=== PATIENT | male | born 1990 | race Caucasian/White ===

== ENCOUNTER 2022-12-01 09:22 | Inpatient (IN) | payer BC ==
[2022-12-01] MEDS ORDERED: SODIUM CHLORIDE 0.9% 500 ML 500 ML IV STA (09:41)
--- NOTE | 2022-12-01 09:45 | ED ---
General Adult HPI - General Chief complaint: Recheck/Abnormal Lab/Rx Stated complaint: hypertension, SOB Time Seen by Provider: 12/01/22 09:30 Source: patient, RN notes reviewed, old records reviewed Mode of arrival: ambulatory Limitations: no limitations - History of Present Illness Initial comments: This is a 32-year-old male with past medical history significant for hypertension and he isn't compliant with his medications. Patient states for about a week he's been short of breath and particularly with exertion. Patient states that week he had a little bit of a cold had a cough but that seems to resolve. Patient denies any chest pain patient denies any palpitations. Patient denies any fever chills. Patient denies any lightheadedness or di zziness. Patient states his only complaint is he feels so he is short of breath. Patient denies any abdominal pain patient denies nausea vomiting diarrhea. Patient denies headache patient denies numbness weakness. Patient denies any swelling to her legs or calf tenderness. Patient denies any history of similar. - Related Data Allergies Allergy/AdvReac Type Severity Reaction Status Date / Time No Known Allergies Allergy Verified 12/01/22 09:28 Review of Systems ROS Statement: Those systems with pertinent positive or pertinent negative responses have been documented in the HPI. ROS Other: All systems not noted in ROS Statement are negative. Past Medical History Past Medical History: Hypertension History of Any Multi-Drug Resistant Organisms: None Reported Past Surgical History: No Surgical Hx Reported Past Psychological History: No Psychological Hx Reported Smoking Status: Current every day smoker Past Alcohol Use History: Occasional Past Drug Use History: Marijuana General Exam - General Exam Comments Initial Comments: GENERAL: Patient is well-developed and well-nourished. Patient is nontoxic and well-h ydrated and is in mild distress. ENT: Neck is soft and supple. No significant lymphadenopathy is noted. Oropharynx is clear. Moist mucous membranes. Neck has full range of motion without eliciting any pain. EYES: The sclera were anicteric and conjunctiva were pink and moist. Extraocular mov ements were intact and pupils were equal round and reactive to light. Eyelids were unremarkable. PULMONARY: Unlabored respirations. Good breath sounds bilaterally. No audible rales rhonchi or wheezing was noted. CARDIOVASCULAR: Patient is tachycardic at 130 beats a minute ABDOMEN: Soft and nontender with normal bowel sounds. SKIN: Skin is clear with no lesions or rashes and otherwise unremarkable. NEUROLOGIC: Patient is alert and oriented x3. Cranial nerves II through XII are grossly intact. Motor and sensory are also intact. Normal speech, volume and content. Symmetrical smile. MUSCULOSKELETAL: Normal extremities with adequate strength and full range of motion. No lower ex tremity swelling or edema. No calf tenderness. LYMPHATICS: No significant lymphadenopathy is noted PSYCHIATRIC: Normal psychiatric evaluation. Limitations: no limitations Course Vital Signs 12/01/22 12/01/22 12/01/22 09:23 10:00 10:15 Temperature 98.4 F Pulse Rate 70 110 H 113 H Respiratory 18 16 17 Rate Blood Pressure 205/160 218/141 218/141 O2 Sat by Pulse 98 98 99 Oximetry 12/01/22 12/01/22 12/01/22 10:18 10:30 10:45 Temperature Pulse Rate 115 H 115 H 112 H Respiratory 18 15 15 Rate Blood Pressure 214/163 214/163 195/150 O2 Sat by Pulse 99 100 97 Oximetry 12/01/22 12/01/22 12/01/22 11:00 11:15 11:30 Temperature Pulse Rate 112 H 86 88 Respiratory 15 15 18 Rate Blood Pressure 194/143 182/113 131/68 O2 Sat by Pulse 97 95 94 L Oximetry Medical Decision Making - Medical Decision Making EKG was interpreted by myself here EKG shows sinus tachycardia [address] interval 140 QRS is under 20 QT interval 340 QTC is 46 per patient's EKG shows no ST segment elevation or depression patient has some T-wave inversions in 1 and aVL Patient was given 20 hydralazine and then started to become diaphoretic for repeat EKG was done EKG was interpreted by myself. EKG showed normal sinus rhythm at [address] interval 260 QRS 120 QTC is 444 QTC is 521 per patient's EKG shows T-wave in versions in leads V4 through V6 as well as 1 and aVL. Was pt. sent in by a medical professional or institution? @ -Urgent care sent the patient to the emergency department Did you speak to anyone other than the patient for history? @ -No Did you review nursing and triage notes? @ -Agree with nursing notes Were old charts reviewed? @ -I reviewed the urgent care notes Differential Diagnosis? @ -Differential Dyspnea: Coronary syndrome, arrhythmia, tamponade, asthma, COPD, pulmonary embolism, pneumonia, pneumothorax, pulmonary effusion, anaphylaxis, diabetic ketoacidosis, flailed chest, pulmonary contusion, diaphragmatic rupture, anemia, neuromuscular, this is not meant to be an all-inclusive list. EKG interpreted by me (3pts min.)? @ -As above X-rays interpreted by me (1pt min.)? @ -I interpreted chest x-ray that showed cardiomegaly or pleural effusions and some pulmonary edema CT interpreted by me (1pt min.)? @ -None U/S interpreted by me (1pt. min.)? @ -None What testing was considered but not performed? (CT, X-rays, U/S, labs)? Why? @ -Echo was considered but it'll be done as an inpatient after I spoke with cardiology. What meds were considered but not given? Why? @ -Lasix was considered however I thought this was more blood pressure issue so I held the Lasix for now Did you discuss the management of the patient with other professionals? @ -I spoke with Dr. Contreras he agreed to be on consult and see the patient in the ED. I also spoke with Dr. reina he agreed to admit the patient I wrote admitting orders. Did you reconcile home meds? @ -None Was smoking cessation discussed for >3mins.? @ -None Was critical care preformed (if so, how long)? @ -Yes. 35 minutes. Were there social determinants of health that impacted care today? How? (Homelessness, low income, unemployed, alcoholism, drug addiction, transportation, low edu. Level, literacy, decrease access to med. care, assisted, rehab)? @ -None Was there de-escalation of care discussed even if they declined? (Discuss DNR or withdrawal of care, Hospice)? @ -None What co-morbidities impacted this encounter? (DM, HTN, Smoking, COPD, CAD, Cancer, CVA, Hep., AIDS, mental health diagnosis, sleep apnea, morbid obesity)? @ -Hypertension is contributing to his cardiomegaly as well as is pulmonary edema and kidney dysfunction Was patient admitted / discharged? @ -Patient will be admitted for pulmonary edema acute renal failure elevated troponin and hypertensive emergency Undiagnosed new problem with uncertain prognosis? @ -No Drug Therapy requiring intensive monitoring for toxicity (Heparin, Nitro, Insulin, Cardizem)? @ -No Were any procedures done? @ -No Diagnosis/symptom? @ -Hypertensive emergency Acute, or Chronic, or Acute on Chronic? @ -Acute on chronic Uncomplicated (without systemic symptoms) or Complicated (systemic symptoms)? @ -Complicated Side effects of treatment? @ -None Exacerbation, Progression, or Severe Exacerbation] @ -Severe exacerbation Poses a threat to life or bodily function? @ -Yes his hypertension is causing his renal failure his cardiomegaly and is pulmonary edema Diagnosis/symptom? @ -Pulmonary edema Acute, or Chronic, or Acute on Chronic? @ -Acute Uncomplicated (without systemic symptoms) or Complicated (systemic symptoms)? @ -Complicated Side effects of treatment? @ -None Exacerbation, Progression, or Severe Exacerbation] @ -[no] Poses a threat to life or bodily function? @ -Yes. Pulmonary edema continued hypoxia which can lead to [place] dysfunction Diagnosis/symptom? @ -Acute renal failure Acute, or Chronic, or Acute on Chronic? @ -Acute Uncomplicated (without systemic symptoms) or Complicated (systemic symptoms)? @ -Uncomplicated Side effects of treatment? @ -None Exacerbation, Progression, or Severe Exacerbation] @ -None Poses a threat to life or bodily function? @ -No - Lab Data Result diagrams: 12/01/22 10:00 12/01/22 10:00 Lab Results 12/01/22 12/01/22 12/01/22 Range/Units 10:00 10:00 10:00 WBC 6.2 (3.8-10.6) k/uL RBC 5.55 (4.30-5.90) m/uL Hgb 16.7 (13.0-17.5) gm/dL Hct 46.9 (39.0-53.0) % MCV 84.4 (80.0-100.0) fL MCH 30.0 (25.0-35.0) pg MCHC 35.5 (31.0-37.0) g/dL RDW 13.4 (11.5-15.5) % Plt Count 240 (150-450) k/uL MPV 8.2 Neutrophils % 72 % Lymphocytes % 16 % Monocytes % 5 % Eosinophils % 3 % Basophils % 1 % Neutrophils # 4.5 (1.3-7.7) k/uL Lymphocytes # 1.0 (1.0-4.8) k/uL Monocytes # 0.3 (0-1.0) k/uL Eosinophils # 0.2 (0-0.7) k/uL Basophils # 0.1 (0-0.2) k/uL PT 11.7 (9.0-12.0) sec INR 1.1 (<1.2) APTT 24.8 (22.0-30.0) sec D-Dimer 0.54 (<0.60) mg/L FEU Sodium 136 L (137-145) mmol/L Potassium 3.8 (3.5-5.1) mmol/L Chloride 103 (98-107) mmol/L Carbon Dioxide 24 (22-30) mmol/L Anion Gap 9 mmol/L BUN 14 (9-20) mg/dL Creatinine 1.62 H (0.66-1.25) mg/dL Est GFR (CKD-EPI)AfAm 64 (>60 ml/min/1.73 sqM) Est GFR (CKD-EPI)NonAf 55 (>60 ml/min/1.73 sqM) Glucose 114 H (74-99) mg/dL Plasma Lactic Acid Mike (0.7-2.0) mmol/L Calcium 9.4 (8.4-10.2) mg/dL Total Bilirubin 1.4 H (0.2-1.3) mg/dL AST 35 (17-59) U/L ALT 39 (4-49) U/L Alkaline Phosphatase 99 (38-126) U/L Troponin I (0.000-0.034) ng/mL NT-Pro-B Natriuret Pep pg/mL Total Protein 7.0 (6.3-8.2) g/dL Albumin 4.3 (3.5-5.0) g/dL 12/01/22 12/01/22 12/01/22 Range/Units 10:00 10:00 10:00 WBC (3.8-10.6) k/uL RBC (4.30-5.90) m/uL Hgb (13.0-17.5) gm/dL Hct (39.0-53.0) % MCV (80.0-100.0) fL MCH (25.0-35.0) pg MCHC (31.0-37.0) g/dL RDW (11.5-15.5) % Plt Count (150-450) k/uL MPV Neutrophils % % Lymphocytes % % Monocytes % % Eosinophils % % Basophils % % Neutrophils # (1.3-7.7) k/uL Lymphocytes # (1.0-4.8) k/uL Monocytes # (0-1.0) k/uL Eosinophils # (0-0.7) k/uL Basophils # (0-0.2) k/uL PT (9.0-12.0) sec INR (<1.2) APTT (22.0-30.0) sec D-Dimer (<0.60) mg/L FEU Sodium (137-145) mmol/L Potassium (3.5-5.1) mmol/L Chloride (98-107) mmol/L Carbon Dioxide (22-30) mmol/L Anion Gap mmol/L BUN (9-20) mg/dL Creatinine (0.66-1.25) mg/dL Est GFR (CKD-EPI)AfAm (>60 ml/min/1.73 sqM) Est GFR (CKD-EPI)NonAf (>60 ml/min/1.73 sqM) Glucose (74-99) mg/dL Plasma Lactic Acid Mike 1.5 (0.7-2.0) mmol/L Calcium (8.4-10.2) mg/dL Total Bilirubin (0.2-1.3) mg/dL AST (17-59) U/L ALT (4-49) U/L Alkaline Phosphatase (38-126) U/L Troponin I 0.046 H* (0.000-0.034) ng/mL NT-Pro-B Natriuret Pep 8950 pg/mL Total Protein (6.3-8.2) g/dL Albumin (3.5-5.0) g/dL Critical Care Time Critical Care Time: Yes Total Critical Care Time: 35 Disposition Clinical Impression: Hypertensive emergency, Acute renal failure, Pulmonary edema, acute, Elevated troponin Disposition: ADMITTED IP TO THIS [facility] Referrals: None,Stated [REFERRING] - 1-2 days Time of Disposition: 12:08
[2022-12-01 10:23] LABS: Basophils # (A) 0.1 k/uL (0-0.2); Basophils % (A) 1 %; Eosinophils # (A) 0.2 k/uL (0-0.7); Eosinophils % (A) 3 %; HCT 46.9 % (39.0-53.0); HGB 16.7 gm/dL (13.0-17.5); Lymphocytes % (A) 16 %; MCHC 35.5 g/dL (31.0-37.0); MCV 84.4 fL (80.0-100.0); Mean Platelet Volume 8.2; Monocytes # (A) 0.3 k/uL (0-1.0); Monocytes % (A) 5 %; Neutrophils # (A) 4.5 k/uL (1.3-7.7); Neutrophils % (A) 72 %; Platelet Count 240 k/uL (150-450); RBC 5.55 m/uL (4.30-5.90); RDW 13.4 % (11.5-15.5); WBC 6.2 k/uL (3.8-10.6)
[2022-12-01] MEDS ORDERED: hydrALAZINE HCL 20 MG/ML 1 ML VIAL IVP STA (10:27)
[2022-12-01] MEDS ORDERED: LABETALOL 5 MG/ML VIAL MDV IVP STA (10:27)
[2022-12-01 10:30] LABS: Albumin 4.3 g/dL (3.5-5.0); Calcium 9.4 mg/dL (8.4-10.2); Total Bilirubin 1.4 mg/dL (0.2-1.3)
[2022-12-01 10:35] LABS: INR 1.1 (<1.2); Partial Thromboplastin Time 24.8 sec (22.0-30.0); Prothrombin Time 11.7 sec (9.0-12.0)
[2022-12-01 10:36] LABS: Potassium 3.8 mmol/L (3.5-5.1)
--- NOTE | 2022-12-01 10:45 | XR ---
EXAMINATION TYPE: XR chest 2V DATE OF EXAM: 12/01/2022 10:39 AM COMPARISON: Chest radiographs from 12/01/2022 TECHNIQUE: XR chest 2V Frontal and lateral views of the chest. CLINICAL INDICATION:Male, 32 years old with history of difficulty breathing; FINDINGS: Lungs/Pleura: Scattered subtle reticular and hazy opacities. No evidence of pneumothorax, focal conso lidation or pleural effusion. Pulmonary vascularity: Unremarkable. Heart/mediastinum: Cardiomediastinal silhouette is unremarkable. Musculoskeletal: No acute osseous pathology. IMPRESSION: Subtle scattered opacities which may represent an atypical pneumonia.
[2022-12-01] MEDS ORDERED: HEPARIN SODIUM 1,000 UN/ML (10ML VL) IV ONE (11:50)
[2022-12-01] MEDS: HEPARIN SOD,PORK IN 0.45% NACL 25,000 UNIT in 0.45% NACL 1 250ML.BAG IV SCH (12:00)
[2022-12-01] MEDS ORDERED: carvediloL 3.125 MG TAB PO STA (12:11)
--- NOTE | 2022-12-01 12:16 | P.CRDCN ---
History of Present Illness Consult date: 12/01/22 Chief complaint: Shortness of breath History of present illness: The patient is a 32-year-old gentleman with a past medical history significant f or hypertension who stopped taking his blood pressure medication with lisinopril about 2 years ago presented to the hospital complaining of shortness of breath. He has not been feeding well for the last week or so. He was experiencing symptoms of shortness of breath mainly with exertion and also he has been experiencing orthopnea and PND. He presented initially into an urgent care where he was checked and was found to have elevated blood pressure which seems to be consistent was hypertension crisis/hypertension emergency with a systolic pressure above 180 mmHg. For that reason he was referred to go to the emergency department. Here his pressure continues to be elevated. He was given hy dralazine with improvement in the blood pressure. He has no symptoms of chest pain or chest discomfort. No dizziness or lightheadedness and no feeling of heart racing or fluttering or presyncope or syncope. He underwent a workup including a chest x-ray showed no acute abnormalities with possible left small pleural effusion and also he underwent an EKG which showed initially sinus rhythm was no ST or T-wave abnormalities but possible LVH but subsequently after his pressure dropped down with hydralazine the repeated EKG showed what it seems to be T-wave inversion in the anterolateral leads definitely concerning for ischemia and could be also related to left ventricular hypertrophy. The first set of troponin came in to be abnormal. The NT proBNP came in around 8000. His creatinine also is a slightly abnormal with a GFR of 55. No history of coronary artery disease or congestive heart failure or cardiac arrhythmia but he does have history of hypertension and he has been noncompliant with medications. Currently he is feeling better into of shortness of breath and continues to have any chest pain or chest discomfort. Past Medical History Past Medical History: Hypertension History of Any Multi-Drug Resistant Organisms: None Reported Past Surgical History: No Surgical Hx Reported Past Psychological History: No Psychological Hx Reported Smoking Status: Current every day smoker Past Alcohol Use History: Occasional Past Drug Use History: Marijuana Medications and Allergies Allergies Allergy/AdvReac Type Severity Reaction Status Date / Time No Known Allergies Allergy Verified 12/01/22 09:28 Physical Exam Vitals: Vital Signs Temp Pulse Resp BP Pulse Ox 12/01/22 11:30 88 18 131/68 94 L 12/01/22 11:15 86 15 182/113 95 12/01/22 11:00 112 H 15 194/143 97 12/01/22 10:45 112 H 15 195/150 97 12/01/22 10:30 115 H 15 214/163 100 12/01/22 10:18 115 H 18 214/163 99 12/01/22 10:15 113 H 17 218/141 99 12/01/22 10:00 110 H 16 218/141 98 12/01/22 09:23 98.4 F 70 18 205/160 98 Intake and Output 11/30/22 12/01/22 12/01/22 22:59 06:59 14:59 Other: Weight 90.537 kg - Constitutional General appearance: no acute distress - Respiratory Respiratory: bilateral: CTA - Cardiovascular Rhythm: regular Results 12/01/22 10:00 12/01/22 10:00 Cardiac Enzymes 12/01/22 12/01/22 Range/Units 10:00 10:00 AST 35 (17-59) U/L Troponin I 0.046 H* (0.000-0.034) ng/mL Coagulation 12/01/22 Range/Units 10:00 PT 11.7 (9.0-12.0) sec APTT 24.8 (22.0-30.0) sec CBC 12/01/22 Range/Units 10:00 WBC 6.2 (3.8-10.6) k/uL RBC 5.55 (4.30-5.90) m/uL Hgb 16.7 (13.0-17.5) gm/dL Hct 46.9 (39.0-53.0) % Plt Count 240 (150-450) k/uL Comprehensive Metabolic Panel 12/01/22 Range/Units 10:00 Sodium 136 L (137-145) mmol/L Potassium 3.8 (3.5-5.1) mmol/L Chloride 103 (98-107) mmol/L Carbon Dioxide 24 (22-30) mmol/L BUN 14 (9-20) mg/dL Creatinine 1.62 H (0.66-1.25) mg/dL Glucose 114 H (74-99) mg/dL Calcium 9.4 (8.4-10.2) mg/dL AST 35 (17-59) U/L ALT 39 (4-49) U/L Alkaline Phosphatase 99 (38-126) U/L Total Protein 7.0 (6.3-8.2) g/dL Albumin 4.3 (3.5-5.0) g/dL Current Medications Generic Name Dose Route Start Last Admin Trade Name Freq PRN Reason Stop Dose Admin Carvedilol 3.125 mg 12/01/22 12:11 Carvedilol 3.125 Mg Tab PO 12/01/22 12:12 ONCE STA Heparin Sodium/Sodium Chloride 250 mls @ 10.004 mls/hr 12/01/22 12:00 12/01/22 12:00 25,000 unit/ Sodium Chloride IV 11.05 units/kg/hr .Q24H MICHEAL 10.004 mls/hr Administration Protocol 11.05 UNITS/KG/HR Intake and Output 11/30/22 12/01/22 12/01/22 22:59 06:59 14:59 Other: Weight 90.537 kg Patient Weight 12/02/22 06:59 Weight 90.537 kg 12/01/22 10:00 12/01/22 10:00 Assessment and Plan Assessment: Assessment Hypertension crisis with hypertension emergency Shortness of breath related to hypertension emergency Evidence of myocardial injury with EKG changes could be representing severe CAD Mild renal failure Noncompliance Plan Giving the hypertension and tachycardia, I'm going to start the patient on carvedilol Consider adding diuretics if the pressure remains elevated. Consider adding hydrochlorothiazide Continue monitor the kidney function and electrolytes Continue just the medications to get the pressure under control Follow-up with the serial cardiac enzymes Obtain an echocardiogram was Doppler Follow-up with the patient
[2022-12-01] MEDS ORDERED: NITROGLYCERIN-D5W PMX 50 MG in DEXTROSE/WATER 1 250ML.BAG IV SCH (17:45)
[2022-12-01] MEDS ORDERED: amLODIPine 5 MG TAB PO SCH (18:30)
[2022-12-01] MEDS: hydroCHLOROthiazide 25 MG TAB PO SCH (18:33)
[2022-12-01] MEDS: hydrALAZINE HCL 20 MG/ML 1 ML VIAL IVP PRN ×2 (18:33→22:14)
[2022-12-01] MEDS ORDERED: HEPARIN SODIUM 1,000 UN/ML (10ML VL) IV PRN (18:46)
--- NOTE | 2022-12-01 21:42 | HP ---
HISTORY AND PHYSICAL CHIEF COMPLAINT: Shortness of breath and hypertension. HISTORY OF PRESENT ILLNESS: This 32-year-old gentleman with a past medical history of hypertension, is actually noncompliant, the patient is not taking medications during the COVID times according to him. The patient is complaining of shortness of breath and the patient came to [facility]. The patient had a history of CHF and hypertensive urgency. The troponin is also mildly elevated. The patient was given hydralazine, but because of increase in blood pressure, the patient was started on nitro drip and is being transferred to ICU at this time. There is no history of any fever, rigors, or chills. PAST MEDICAL HISTORY: Reviewed and include hypertension. Rest of the history and rest of the chart is reviewed. HOME MEDICATIONS: Reviewed and include none. ALLERGIES: None. FAMILY HISTORY: No history of heart disease or strokes in the family. SOCIAL HISTORY: History of smoking and history of THC. REVIEW OF SYSTEMS: A 14-point review of systems is negative except as mentioned earlier. PHYSICAL EXAMINATION: VITAL SIGNS: Pulse is 112, blood pressure 117/72, respirations 15. HEENT: Conjunctivae normal. NECK: n CARDIOVASCULAR: n S3 gallop present. RESPIRATION: Few scattered rhonchi and crackles. ABDOMEN: Soft, nontender. LEGS: No edema. NERVOUS SYSTEM: Nonfocal. SKIN: No ulcer, rash,n JOINTS: No active deforming arthropathy. LABORATORY DATA: CBC within normal limits. Sodium 133. Rest of the labs are noted. ASSESSMENT: 1. Congestive heart failure acute exacerbation. 2. Hypertensive urgency. 3. Troponin 0.062, possible acute rxl-WH-eckctur elevation myocardial infarction. 4. Creatinine 1.62, chronic kidney disease, stage 3. 5. History of nicotine dependence. 6. History of THC. 7. History of noncompliance. RECOMMENDATIONS: In this 32-year-old gentleman, who presented with multiple complex medical issues at this time, I recommend to continue current management and symptomatic treatment. Continue hydralazine p.r.n. Transfer to ICU and nitro drip. Resume the home medications. Coreg and aspirin were initiated. The prognosis is guarded because of multiple complex medical problems. See orders for further details. n Norvasc has been initiated 5 mg, and we will continue to monitor. Prognosis is guarded. See orders for details. DVT prophylaxis. Further recommendations to follow. MMODL / IJN: [id number] / MTDD
[2022-12-02] MEDS: HEPARIN SOD,PORK IN 0.45% NACL 25,000 UNIT in 0.45% NACL 1 250ML.BAG IV SCH (00:42)
[2022-12-02] MEDS: hydrALAZINE HCL 20 MG/ML 1 ML VIAL IVP PRN ×4 (02:19→21:34)
[2022-12-02 07:22] LABS: Basophils # (A) 0.1 k/uL (0-0.2); Basophils % (A) 1 %; Eosinophils # (A) 0.1 k/uL (0-0.7); Eosinophils % (A) 2 %; HCT 45.4 % (39.0-53.0); HGB 15.8 gm/dL (13.0-17.5); Lymphocytes % (A) 11 %; MCH 29.7 pg (25.0-35.0); MCHC 34.9 g/dL (31.0-37.0); MCV 85.1 fL (80.0-100.0); Mean Platelet Volume 8.4; Monocytes # (A) 0.5 k/uL (0-1.0); Monocytes % (A) 6 %; Neutrophils # (A) 6.7 k/uL (1.3-7.7); Neutrophils % (A) 79 %; Platelet Count 207 k/uL (150-450); RBC 5.33 m/uL (4.30-5.90); RDW 13.6 % (11.5-15.5); WBC 8.5 k/uL (3.8-10.6)
[2022-12-02 07:29] LABS: Calcium 9.3 mg/dL (8.4-10.2); Potassium 3.6 mmol/L (3.5-5.1)
--- NOTE | 2022-12-02 08:55 | P.PN ---
Subjective Progress Note Date: 12/02/22 Principal diagnosis: Hypertension emergency The patient is a 32-year-old gentleman with a past medical history significant for hypertension who stopped taking his blood pressure medication with lisinopril about 2 years ago presented to the hospital complaining of shortness of breath. He has not been feeding well for the last week or so. He was experiencing symptoms of shortness of breath mainly with exertion and also he has been experiencing orthopnea and PND. He presented initially into an urgent care where he was checked and was found to have elevated blood pressure which seems to be consistent was hypertension crisis/hypertension emergency with a systolic pressure above 180 mmHg. For that reason he was referred to go to the emergency department. Here his pressure continues to be elevated. He was given hydralazine with improvement in the blood pressure. He has no symptoms of chest pain or chest discomfort. No dizziness or lightheadedness and no feeling of heart racing or fluttering or presyncope or syncope. He underwent a workup including a chest x-ray showed no acute abnormalities with possible left small pleural effusion and also he underwent an EKG which showed initially sinus rhythm was no ST or T-wave abnormalities but possible LVH but subsequently after his pressure dropped down with hydralazine the repeated EKG showed what it seems to be T-wave inversion in the anterolateral leads definitely concerning for ischemia and could be also related to left ventricular hypertrophy. The first set of troponin came in to be abnormal. The NT proBNP came in around 8000. His creatinine also is a slightly abnormal with a GFR of 55. No history of coronary artery disease or congestive heart failure or cardiac arrhythmia but he does have history of hypertension and he has been noncompliant with medications. Currently he is feeling better into of shortness of breath and continues to have any chest pain or chest discomfort. 12/02/2022 The patient was seen and evaluated this morning. He was feeling overall better. The shortness of breath has improved. No symptoms of chest pain or chest discomfort. The pressure continues to be elevated but definitely improved compared to before. Still slightly tachycardic. We'll increase the dose of carvedilol to 6.25 mg by mouth twice a day. Waiting for the echo to be performed. Kidney function has improved. I'm going to proceed with that heart catheterization to rule out severe underlying coronary artery disease Objective - Vital Signs Vital signs: Vital Signs Temp 97.7 F 12/01/22 20:00 Pulse 107 H 12/02/22 08:50 Resp 18 12/02/22 08:50 BP 169/116 12/02/22 08:50 Pulse Ox 98 12/02/22 08:50 FiO2 Intake & Output 12/01/22 12/02/22 12/02/22 18:59 06:59 18:59 Intake Total 66.026 1047.683 Balance 66.026 1047.683 Weight 90.537 kg 90.537 kg Intake: Intake, IV Titration 66.026 77.683 Amount Heparin Sod,Pork in 0.45% 66.026 77.683 NaCl 25,000 unit In 0.45 % NaCl 1 250ml.bag @ 11. 05 UNITS/KG/HR 10.004 mls /hr IV .Q24H [facility] Rx#: [id number] Oral 970 Other: Voiding Method Toilet Urinal # Voids 3 - Constitutional General appearance: Present: no acute distress - Respiratory Respiratory: bilateral: CTA - Cardiovascular Rhythm: regular - Labs CBC & Chem 7: 12/02/22 06:34 12/02/22 06:34 Labs: Abnormal Lab Results - Last 24 Hours (Table) 12/01/22 12/01/22 12/01/22 Range/Units 10:00 10:00 12:38 APTT (22.0-30.0) sec Sodium 136 L (137-145) mmol/L Creatinine 1.62 H (0.66-1.25) mg/dL Glucose 114 H (74-99) mg/dL Total Bilirubin 1.4 H (0.2-1.3) mg/dL Troponin I 0.046 H* 0.047 H* (0.000-0.034) ng/mL 12/01/22 12/02/22 12/02/22 Range/Units 15:42 00:01 06:34 APTT 33.4 H (22.0-30.0) sec Sodium 135 L (137-145) mmol/L Creatinine 1.41 H (0.66-1.25) mg/dL Glucose (74-99) mg/dL Total Bilirubin (0.2-1.3) mg/dL Troponin I 0.062 H* (0.000-0.034) ng/mL 12/02/22 Range/Units 06:34 APTT 59.4 H (22.0-30.0) sec Sodium (137-145) mmol/L Creatinine (0.66-1.25) mg/dL Glucose (74-99) mg/dL Total Bilirubin (0.2-1.3) mg/dL Troponin I (0.000-0.034) ng/mL Assessment and Plan Assessment: Assessment Hypertension crisis with hypertension emergency Shortness of breath related to hypertension emergency Evidence of myocardial injury with EKG changes could be representing severe CAD Mild renal failure Noncompliance Plan Increase the dose of carvedilol Continue the current dose of hydrocortisone Follow-up with echocardiogram Proceed with coronary angiogram Follow-up with the patient and continue just the blood pressure medication
[2022-12-02] MEDS ORDERED: VERAPAMIL 2.5 MG/ML 2 ML AMP ONE (09:22)
[2022-12-02] MEDS: amLODIPine 10 MG TAB PO SCH (09:24)
[2022-12-02] MEDS: hydroCHLOROthiazide 25 MG TAB PO SCH (09:24)
[2022-12-02] MEDS: carvediloL 6.25 MG TAB PO SCH ×2 (09:24→16:48)
[2022-12-02] MEDS ORDERED: IV FLUID CONTINUATION 1,000 ML IV ONE (10:00)
[2022-12-02] MEDS ORDERED: HEPARIN SODIUM 1,000 UN/ML (10ML VL) ONE (10:05)
[2022-12-02] MEDS ORDERED: MIDAZOLAM 2 MG/2 ML VIAL IV ONE (10:09)
[2022-12-02] MEDS ORDERED: METOPROLOL TARTRATE 5 MG/5 ML VIAL IVP ONE ×2 (10:09→10:11)
[2022-12-02] MEDS ORDERED: LIDOCAINE 1% INJ 10MG/ML (5 ML VIAL-PF) SQ ONE (10:09)
[2022-12-02] MEDS ORDERED: VERAPAMIL SYRINGE (5 MG/10 ML) INTRAARTER ONE (10:10)
[2022-12-02] MEDS ORDERED: HEPARIN SODIUM 1,000 UN/ML (10ML VL) IV ONE (10:12)
[2022-12-02] MEDS ORDERED: IOPAMIDOL-370 125ML BTL INJ ONE (10:17)
[2022-12-02] MEDS ORDERED: RX INFO: IV CONTRAST WAS GIVEN 1 EACH MISC MISCELLANE PRN (10:22)
--- NOTE | 2022-12-02 10:24 | P.PCN ---
Date of Procedure: 12/02/22 Operative Findings: CARDIAC CATHETERIZATION PERFORMING PHYSICIAN: Markie Contreras MD, RPVI PROCEDURE PERFORMED: 1. Selective right and left coronary angiogram 2. Left heart catheterization INDICATION: Acute colitis and COMPLICATION: None APPROACH: Right radial artery LEVEL OF SEDATION: Moderate with a sedation length of 10 minutes PROCEDURE DESCRIPTION: After obtaining an informed consent, the patient was brought to cardiac lab instructor. Local anesthesia was performed using lidocaine subcutaneously. The right radial artery was cannulated using Seldinger technique, the guidewire passed easily, following that we advanced a 5-Malian sheath dilator assembly, the wire and dilator were removed and sheath was flushed. Following that, 2 mg of verapamil along with 5000 unit heparin were given. Selective right and left coronary angiogram using a 6-Malian JR4 and JL 3.5 catheters. Following that we did left heart catheterization using 6-Malian pigtail catheter. The procedure was completed there was no complication. SELECTIVE CORONARY ANGIOGRAM: The right coronary artery: Large caliber vessel and a dominant vessel. Its angiographically normal Left main: Angiographically normal. Bifurcates into LCx and LAD The left circumflex: Large caliber vessel nondominant vessel. Its angiographically normal. The left anterior descending artery: Large caliber vessel. Its angiographically normal as well. HEMODYNAMICS: The LVEDP was 24 mmHg was no significant gradient across aortic valve CONCLUSION: 1. Normal coronary angiogram 2. Elevated left-sided filling pressure POSTPROCEDURE MANAGEMENT: Continue the current medical regimen and add IV diuretics and continue adjusting the medication to get the pressure under control
[2022-12-02] MEDS ORDERED: SODIUM CHLORIDE 0.9% 1,000 ML IV SCH (10:30)
--- NOTE | 2022-12-02 15:33 | CA ---
Transthoracic Echo Report Name: Jaden Gregg Age: 32 Gender: M : 1990 Exam Date: 12/02/2022 13:50 Exam Location: [facility] Ht (in): 68 Wt (lb): 199 Ordering Physician: Markie Contreras MD ([id number]) Attending/Referring Phys: Production Designer Isabelle Watson RDCS Procedure CPT: Indications: ACS Cardiac Hx: Technical Quality: Contrast 1: Total Dose (mL): Contrast 2: Total Dose (mL): MEASUREMENTS (Male / Female) Normal Values 2D ECHO LV Diastolic Diameter PLAX 5.8 cm 4.2 - 5.9 / 3.9 - 5.3 cm LV Systolic Diameter PLAX 5.0 cm IVS Diastolic Thickness 1.6 cm 0.6 - 1.0 / 0.6 - 0.9 cm LVPW Diastolic Thickness 2.2 cm 0.6 - 1.0 / 0.6 - 0.9 cm LV Relative Wall Thickness 0.7 RV Internal Dim ED PLAX 3.5 cm LA Systolic Diameter LX 4.8 cm 3.0 - 4.0 / 2.7 - 3.8 cm LV Diastolic Volume MOD BP 227.0 cm??? 67 - 155 / 56 - 104 cm??? LV Systolic Volume MOD BP 183.3 cm??? 22 - 58 / 19 - 49 cm??? LV Ejection Fraction MOD BP 19.3 % >= 55 % LV Diastolic Volume MOD 4C 252.2 cm??? LV Systolic Volume MOD 4C 212.4 cm??? LV Ejection Fraction MOD 4C 15.8 % LV Diastolic Length 4C 10.1 cm LV Systolic Length 4C 9.8 cm LV Diastolic Volume MOD 2C 198.8 cm??? LV Systolic Volume MOD 2C 146.6 cm??? LV Ejection Fraction MOD 2C 26.2 % LV Diastolic Length 2C 10.4 cm LV Systolic Length 2C 9.0 cm LA Volume 125.0 cm??? 18 - 58 / 22 - 52 cm??? M-MODE Aortic Root Diameter MM 3.3 cm LA Systolic Diameter MM 4.9 cm LA Ao Ratio MM 1.5 MV E Point Septal Separation 2.1 cm AV Cusp Separation MM 2.3 cm DOPPLER MV E' Velocity 2.5 cm/s TR Peak Velocity 273.5 cm/s TR Peak Gradient 29.9 mmHg Right Ventricular Systolic Press 34.4 mmHg FINDINGS Left Ventricle Moderately increased septal wall thickness. Severely increased left ventricular diastolic volume. Severely increased left ventricular systolic volume. Severely decreased left ventricular ejection fraction. Right Ventricle Normal right ventricular size and function. Right ventricular systolic pressure within normal limits. Right Atrium Normal right atrial size. Left Atrium Moderately increased left atrial diameter. Severely increased left atrial volume. Mildly increased left atrial area. Mitral Valve Structurally normal mitral valve. Mild to moderate mitral regurgitation. Aortic Valve Trileaflet aortic valve. Tricuspid Valve Structurally normal tricuspid valve. Mild tricuspid regurgitation. Pulmonic Valve Structurally normal pulmonic valve. Pericardium Normal pericardium. Aorta Normal size aortic root and proximal ascending aorta. CONCLUSIONS Severely decreased LV function with an ejection fraction around 15-20% [id number] mitral regurgitation with central jet Previewed by: Dr. Markie Contreras MD (Electronically Signed) Final Date: 02 December 2022 15:33
--- NOTE | 2022-12-02 17:00 | PN ---
PROGRESS NOTE DATE OF SERVICE: 12/02/2022 SUBJECTIVE: This is a 32-year-old gentleman, admitted with hypertensive urgency and also CHF. Also had a cardiac catheterization, which showed normal coronary arteries. No chest pain. No palpitations. No fever. OBJECTIVE: VITAL SIGNS: Pulse 102, blood pressure 174/128, respirations 16. HEENT: Conjunctivae are normal. NECK: No jugular venous distention. CARDIOVASCULAR: S1 and S2. RESPIRATORY: Breath sounds diminished at the bases. ABDOMEN: Soft. NERVOUS SYSTEM: Nonfocal. LABORATORY DATA: Reviewed. ASSESSMENT: 1. Congestive heart failure acute exacerbation. 2. Hypertensive urgency. 3. Troponin 0.062, status post cardiac catheterization as well as normal coronary arteries. 4. Creatinine 1.62. Chronic kidney disease, stage 3. 5. History of nicotine dependence. 6. History of THC. 7. History of noncompliance. RECOMMENDATIONS: Recommend to continue current medications and symptomatic treatment. Otherwise, at this time, continue the antiplatelet agent and the rest of medications. Adjust blood pressure medications. Follow closely with Cardiology. Prognosis is guarded. Further recommendations to follow. See orders for details. MMODL / IJN: [id number] /
[2022-12-02 18:00] LABS: Chol/HDL Ratio 3.93 Ratio; LDL Cholesterol,Calculated 102.4 mg/dL (0.0-131.0); VLDL Calculation 13.88 mg/dL (5.00-40.00)
[2022-12-02] MEDS: FUROSEMIDE 10 MG/ML 2 ML VIAL IV SCH (19:48)
[2022-12-03] MEDS: hydrALAZINE HCL 20 MG/ML 1 ML VIAL IVP PRN (04:17)
[2022-12-03] MEDS: carvediloL 6.25 MG TAB PO SCH (06:36)
[2022-12-03 08:53] LABS: Basophils # (A) 0.1 k/uL (0-0.2); Basophils % (A) 1 %; Eosinophils # (A) 0.3 k/uL (0-0.7); Eosinophils % (A) 5 %; HCT 49.7 % (39.0-53.0); HGB 17.7 gm/dL (13.0-17.5); Lymphocytes # (A) 0.9 k/uL (1.0-4.8); Lymphocytes % (A) 13 %; MCH 30.8 pg (25.0-35.0); MCHC 35.6 g/dL (31.0-37.0); MCV 86.4 fL (80.0-100.0); Mean Platelet Volume 7.8; Monocytes # (A) 0.7 k/uL (0-1.0); Monocytes % (A) 10 %; Neutrophils # (A) 4.6 k/uL (1.3-7.7); Neutrophils % (A) 69 %; Platelet Count 219 k/uL (150-450); RBC 5.75 m/uL (4.30-5.90); RDW 13.3 % (11.5-15.5); WBC 6.7 k/uL (3.8-10.6)
[2022-12-03] MEDS: hydroCHLOROthiazide 25 MG TAB PO SCH (08:54)
[2022-12-03] MEDS: amLODIPine 10 MG TAB PO SCH (08:54)
[2022-12-03] MEDS: FUROSEMIDE 10 MG/ML 2 ML VIAL IV SCH ×2 (08:54→19:44)
[2022-12-03 09:07] LABS: Calcium 9.8 mg/dL (8.4-10.2); Potassium 3.9 mmol/L (3.5-5.1)
[2022-12-03 10:32] VITALS: BMI 28.4
[2022-12-03] MEDS ORDERED: carvediloL 6.25 MG TAB PO STA (11:02)
--- NOTE | 2022-12-03 15:12 | P.PN ---
Subjective Progress Note Date: 12/03/22 History of present illness: The patient is a 32-year-old gentleman with a past medical history significant for hypertension who stopped taking his blood pressure medication with lisinopril about 2 years ago presented to the hospital complaining of shortness of breath. He has not been feeding well for the last week or so. He was experiencing symptoms of shortness of breath mainly with exertion and also he has been experiencing orthopnea and PND. He presented initially into an urgent care where he was checked and was found to have elevated blood pressure which seems to be consistent was hypertension crisis/hypertension emergency with a systolic pressure above 180 mmHg. For that reason he was referred to go to the emergency department. Here his pressure continues to be elevated. He was given hydralazine with improvement in the blood pressure. He has no symptoms of chest pain or chest discomfort. No dizziness or lightheadedness and no feeling of heart racing or fluttering or presyncope or syncope. He underwent a workup including a chest x-ray showed no acute abnormalities with possible left small pleural effusion and also he underwent an EKG which showed initially sinus rhythm was no ST or T-wave abnormalities but possible LVH but subsequently after his pressure dropped down with hydralazine the repeated EKG showed what it seems to be T-wave inversion in the anterolateral leads definitely concerning for ischemia and could be also related to left ventricular hypertrophy. The first set of troponin came in to be abnormal. The NT proBNP came in around 8000. His creatinine also is a slightly abnormal with a GFR of 55. No history of coronary artery disease or congestive heart failure or cardiac arrhythmia but he does have history of hypertension and he has been noncompliant with medications. Currently he is feeling better into of shortness of breath and continues to have any chest pain or chest discomfort. 12/02/2022 The patient was seen and evaluated this morning. He was feeling overall better. The shortness of breath has improved. No symptoms of chest pain or chest discomfort. The pressure continues to be elevated but definitely improved compared to before. Still slightly tachycardic. We'll increase the dose of carvedilol to 6.25 mg by mouth twice a day. Waiting for the echo to be performed. Kidney function has improved. I'm going to proceed with that heart catheterization to rule out severe underlying coronary artery disease 12/03 Yesterday, patient underwent cardiac catheterization by Dr. Contreras which revealed normal coronary angiogram and elevated left-sided filling pressure. Patient gives history that he had a cough with congestion and nausea approximate month ago and after the last week he had shortness of breath. Heart rate in the 90s, blood pressure is been elevated 149/107, pulse ox 97% on room air. Repeat blood work reveals hemoglobin 17.7. Sodium 132, potassium 3.9, BUN 16 and creatinine 1.42. Echocardiogram reveals EF of 15-20%. Mild to moderate mitral regurgitation. Physical examination: Gen: This is a 32-year-old male. He is resting in bed and appears to be comfortable. Multiple family members are at the bedside and brother is on the phone to listen and ask questions. VS: reviewed HEENT: Head is atraumatic, normocephalic. Pupils equal, round. Sclerae is anicteric. NECK: Supple. No JVD. No lymphadenopathy. LUNGS: Clear to auscultation. No wheezes or rhonchi. No intercostal retractions. HEART: Regular rate and rhythm. No murmur. ABDOMEN: Soft. Bowel sounds are present. No masses. No tenderness. EXTREMITIES: No pedal edema. No calf tenderness. NEUROLOGICAL: Patient is awake, alert and oriented x3. Cranial nerves 2 through 12 are grossly intact. Assessment Hypertension crisis with hypertension emergency, rule out renal artery stenosis or other underlying cause Shortness of breath related to severe cardiomyopathy, possibly viral induced Mild renal failure Noncompliance Plan Continue Coreg at increased dose of 12.5 mg twice daily and continue amlodipine 10 mg daily Continue Lasix 20 mg IV every 12 hours Obtain labs for aldosterone, metanephrines, renin direct, coxsackie, parvovirus, Covid 19, influenza A and B Smoking cessation Nurse practitioner note has been reviewed, I agree with documented findings and plan of care. Patient was seen and examined. Objective - Vital Signs Vital signs: Vital Signs Temp 97.6 F 12/03/22 08:00 Pulse 86 12/03/22 08:00 Resp 17 12/03/22 08:00 BP 151/100 12/03/22 08:00 Pulse Ox 96 12/03/22 08:00 FiO2 Intake & Output 12/02/22 12/03/22 12/03/22 18:59 06:59 18:59 Intake Total 720 Output Total 450 1350 Balance 270 -1350 Weight 84.8 kg 84.8 kg Intake: IV 300 Oral 420 Output: Urine 450 1350 Other: Voiding Method Urinal Urinal Urinal # Voids 1 - Labs CBC & Chem 7: 12/03/22 08:35 12/03/22 08:35 Labs: Abnormal Lab Results - Last 24 Hours (Table) 12/02/22 12/03/22 12/03/22 Range/Units 06:34 08:35 08:35 Hgb 17.7 H (13.0-17.5) gm/dL Lymphocytes # 0.9 L (1.0-4.8) k/uL Sodium 132 L (137-145) mmol/L Creatinine 1.42 H (0.66-1.25) mg/dL HDL Cholesterol 39.70 L (40.00-60.00) mg/dL
[2022-12-03] MEDS: HEPARIN SODIUM,PORCINE/PF 5,000 UNIT/0.5 ML SYRINGE SQ SCH ×2 (15:43→19:44)
[2022-12-03] MEDS: carvediloL 12.5 MG TAB PO SCH (17:23)
--- NOTE | 2022-12-03 21:57 | PN ---
PROGRESS NOTE DATE OF SERVICE: 12/03/2022 SUBJECTIVE: This is a 32-year-old gentleman admitted with CHF as well as hypertensive urgency, being closely monitored. No chest pain. No palpitations. No fever. Cardiac cath is normal. Ejection fraction is 15% to 20%. PHYSICAL EXAMINATION: VITAL SIGNS: Pulse is 93, blood pressure 149/107, respirations 17. HEENT: Conjunctivae normal. CARDIOVASCULAR: S1, S2. RESPIRATIONS: A few scattered rhonchi. ABDOMEN: Soft. NERVOUS SYSTEM: No focal deficits. LABORATORY DATA: Reviewed. ASSESSMENT: 1. Congestive heart failure acute exacerbation with acute on chronic systolic dysfunction, ejection fraction 15% to 20%, possibly nonischemic cardiomyopathy. 2. Hypertensive urgency. 3. Troponin 0.062 status post cardiac catheterization as well as normal coronary arteries of indeterminate origin. 4. Creatinine 1.62, chronic kidney disease stage 3. 5. History of nicotine dependence. 6. History of THC. 7. History of noncompliance. RECOMMENDATIONS: Recommend to continue current management. Continue symptomatic treatment. Continue with diuretics. Monitor blood pressure closely. The patient is on Coreg, which is increasing doses. Otherwise, continue with Lasix. Prognosis guarded because of multiple complex medical issues. Further recommendations to follow. See orders for details. MMODL / IJN: [id number] /
[2022-12-04] MEDS: carvediloL 12.5 MG TAB PO SCH ×2 (06:12→17:23)
--- NOTE | 2022-12-04 08:18 | P.PN ---
Subjective Progress Note Date: 12/04/22 Principal diagnosis: Hypertensive crisis with pulmonary edema The patient's 32-year-old white male with history of hypertension came in with pulmonary edema hypertensive crisis. Cardiac catheterization is nominal. However the patient has such high blood pressure renal arteriogram is pending. Labs are nominal. The patient feels much better tolerating medication without difficulty. Hopefully home when cleared by cardiology next 24 Objective - Vital Signs Vital signs: Vital Signs Temp 98.0 F 12/03/22 16:00 Pulse 80 12/04/22 04:00 Resp 18 12/04/22 04:00 BP 143/96 12/04/22 04:00 Pulse Ox 95 12/04/22 04:00 FiO2 Intake & Output 12/03/22 12/04/22 12/04/22 18:59 06:59 18:59 Output Total 1400 550 Balance -1400 -550 Weight 84.8 kg 83.9 kg Output: Urine 1400 550 Other: Voiding Method Urinal Urinal - Constitutional General appearance: Present: average body habitus - EENT Eyes: Absent: abnormal pupil - Neck Neck: Absent: lymphadenopathy - Respiratory Respiratory: bilateral: diminished - Cardiovascular Rhythm: regular Heart sounds: normal: S1, S2 Abnormal Heart Sounds: Absent: S3 Gallop - Gastrointestinal General gastrointestinal: Present: soft. Absent: splenomegaly, tenderness - Labs CBC & Chem 7: 12/03/22 08:35 12/03/22 08:35 Labs: Abnormal Lab Results - Last 24 Hours (Table) 12/03/22 12/03/22 Range/Units 08:35 08:35 Hgb 17.7 H (13.0-17.5) gm/dL Lymphocytes # 0.9 L (1.0-4.8) k/uL Sodium 132 L (137-145) mmol/L Creatinine 1.42 H (0.66-1.25) mg/dL Assessment and Plan (1) Acute renal failure Current Visit: Yes Status: Acute Code(s): N17.9 - ACUTE KIDNEY FAILURE, UNSPECIFIED SNOMED Code(s): 05706369 (2) CHF (congestive heart failure) Current Visit: Yes Status: Acute Code(s): I50.9 - HEART FAILURE, UNSPECIFIED SNOMED Code(s): 24046205 (3) Elevated troponin Current Visit: Yes Status: Acute Code(s): R77.8 - OTHER SPECIFIED ABNORMALITIES OF PLASMA PROTEINS SNOMED Code(s): 662796392 (4) Hypertensive emergency Current Visit: Yes Status: Acute Code(s): I16.1 - HYPERTENSIVE EMERGENCY SNOMED Code(s): 423039120532307 (5) Pulmonary edema, acute Current Visit: Yes Status: Acute Code(s): J81.0 - ACUTE PULMONARY EDEMA SNOMED Code(s): 34840555 Plan: Last laboratory seem nominal. Anticipate discharge when cleared by cardiology in the next 24 hours. See orders otherwise.
--- NOTE | 2022-12-04 08:29 | US ---
EXAMINATION TYPE: US renal artery duplex complete DATE OF EXAM: 12/04/2022 COMPARISON: NONE CLINICAL HISTORY: 32-year-old male HTN, severe cardiomyopathy. TECHNIQUE: Multiple sonographic images of the kidneys are obtained. Doppler spectral waveform analysi s of the abdominal aorta and renal arteries. FINDINGS: Mid abdominal aortic peak systolic velocity: 79.4 cm/s MEASUREMENTS: RENAL SIZE: Rt Kidney: 11.6 x 4.2 x 4.7 cm Lt Kidney: 10.1 x 5.7 x 5.4 cm No hydronephrosis on either side. RESISTANCE INDEX Right: 0.54 Left: 0.58 RA/AO RATIO (< 3.5 ) Right: 1.5 Left: 1.7 RA VELOCITY ( < 180 cm/s) Right: 119 Left: 135 Sr. Social Media & Mobile Manager notes: Kidneys and aorta unremarkable. No ultrasound evidence for renal artery stenosis. No elevated velocities. IMPRESSION: No sonographic/Doppler evidence for renal artery stenosis on either side.
[2022-12-04 09:28] LABS: Basophils # (A) 0.1 k/uL (0-0.2); Basophils % (A) 1 %; Eosinophils # (A) 0.3 k/uL (0-0.7); Eosinophils % (A) 5 %; HCT 52.7 % (39.0-53.0); HGB 18.6 gm/dL (13.0-17.5); Lymphocytes % (A) 15 %; MCH 30.3 pg (25.0-35.0); MCHC 35.3 g/dL (31.0-37.0); MCV 85.8 fL (80.0-100.0); Mean Platelet Volume 7.8; Monocytes # (A) 0.5 k/uL (0-1.0); Monocytes % (A) 8 %; Neutrophils # (A) 4.6 k/uL (1.3-7.7); Neutrophils % (A) 69 %; Platelet Count 233 k/uL (150-450); RBC 6.15 m/uL (4.30-5.90); RDW 13.1 % (11.5-15.5); WBC 6.6 k/uL (3.8-10.6)
[2022-12-04] MEDS: FUROSEMIDE 10 MG/ML 2 ML VIAL IV SCH (09:29)
[2022-12-04] MEDS: amLODIPine 10 MG TAB PO SCH (09:29)
[2022-12-04] MEDS: HEPARIN SODIUM,PORCINE/PF 5,000 UNIT/0.5 ML SYRINGE SQ SCH ×2 (09:29→19:48)
[2022-12-04 09:44] LABS: Calcium 10.3 mg/dL (8.4-10.2); Potassium 3.8 mmol/L (3.5-5.1)
--- NOTE | 2022-12-04 13:39 | P.PN ---
Subjective Progress Note Date: 12/04/22 History of present illness: The patient is a 32-year-old gentleman with a past medical history significant for hypertension who stopped taking his blood pressure medication with lisinopril about 2 years ago presented to the hospital complaining of shortness of breath. He has not been feeding well for the last week or so. He was experiencing symptoms of shortness of breath mainly with exertion and also he has been experiencing orthopnea and PND. He presented initially into an urgent care where he was checked and was found to have elevated blood pressure which seems to be consistent was hypertension crisis/hypertension emergency with a systolic pressure above 180 mmHg. For that reason he was referred to go to the emergency department. Here his pressure continues to be elevated. He was given hydralazine with improvement in the blood pressure. He has no symptoms of chest pain or chest discomfort. No dizziness or lightheadedness and no feeling of heart racing or fluttering or presyncope or syncope. He underwent a workup including a chest x-ray showed no acute abnormalities with possible left small pleural effusion and also he underwent an EKG which showed initially sinus rhythm was no ST or T-wave abnormalities but possible LVH but subsequently after his pressure dropped down with hydralazine the repeated EKG showed what it seems to be T-wave inversion in the anterolateral leads definitely concerning for ischemia and could be also related to left ventricular hypertrophy. The first set of troponin came in to be abnormal. The NT proBNP came in around 8000. His creatinine also is a slightly abnormal with a GFR of 55. No history of coronary artery disease or congestive heart failure or cardiac arrhythmia but he does have history of hypertension and he has been noncompliant with medications. Currently he is feeling better into of shortness of breath and continues to have any chest pain or chest discomfort. 12/02/2022 The patient was seen and evaluated this morning. He was feeling overall better. The shortness of breath has improved. No symptoms of chest pain or chest discomfort. The pressure continues to be elevated but definitely improved compared to before. Still slightly tachycardic. We'll increase the dose of carvedilol to 6.25 mg by mouth twice a day. Waiting for the echo to be performed. Kidney function has improved. I'm going to proceed with that heart catheterization to rule out severe underlying coronary artery disease 12/03 Yesterday, patient underwent cardiac catheterization by Dr. Contreras which revealed normal coronary angiogram and elevated left-sided filling pressure. Patient gives history that he had a cough with congestion and nausea approximate month ago and after the last week he had shortness of breath. Heart rate in the 90s, blood pressure is been elevated 149/107, pulse ox 97% on room air. Repeat blood work reveals hemoglobin 17.7. Sodium 132, potassium 3.9, BUN 16 and creatinine 1.42. Echocardiogram reveals EF of 15-20%. Mild to moderate mitral regurgitation. / Blood pressure is improved from yesterday with medication changes made. We will increase Coreg. Plan will be eventually for MARLA inhibitor or ARB but on hold due to acute kidney injury. Lasix will be discontinued due to worsening renal function. BUN 25 and creatinine 1.79. Renal Doppler revealed no renal artery stenosis. Plan to monitor another day. Physical examination: Gen: This is a 32-year-old male. He is resting in bed and appears to be comfortable. VS: reviewed HEENT: Head is atraumatic, normocephalic. Pupils equal, round. Sclerae is anicteric. NECK: Supple. No JVD. LUNGS: Clear to auscultation. No wheezes or rhonchi. No intercostal retractions. HEART: Regular rate and rhythm. No murmur. ABDOMEN: Soft. Bowel sounds are present. No masses. No tenderness. EXTREMITIES: No pedal edema. No calf tenderness. NEUROLOGICAL: Patient is awake, alert and oriented x3. Cranial nerves 2 through 12 are grossly intact. Assessment Hypertension crisis with hypertension emergency, ruled out renal artery stenosis, rule out other etiology Shortness of breath related to severe cardiomyopathy, possibly viral induced Mild renal failure Noncompliance Plan Continue Coreg at increased dose of 12.5 mg twice daily and continue amlodipine 10 mg daily Discontinue Lasix Obtain labs for aldosterone, metanephrines, renin direct, coxsackie, parvovirus Smoking cessation Monitor patient for another 24 hours, repeat blood work in the morning Upon discharge, patient will have follow-up with Dr. Contreras. Nurse practitioner note has been reviewed, I agree with documented findings and plan of care. Patient was seen and examined. Objective - Vital Signs Vital signs: Vital Signs Temp 97.4 F L 12/04/22 08:00 Pulse 73 12/04/22 08:00 Resp 16 12/04/22 08:00 BP 145/91 12/04/22 08:00 Pulse Ox 96 12/04/22 08:00 FiO2 Intake & Output 12/03/22 12/04/22 12/04/22 18:59 06:59 18:59 Output Total 1400 550 Balance -1400 -550 Weight 84.8 kg 83.9 kg Output: Urine 1400 550 Other: Voiding Method Urinal Urinal - Labs CBC & Chem 7: 12/04/22 08:38 12/04/22 08:38 Labs: Abnormal Lab Results - Last 24 Hours (Table) 12/04/22 12/04/22 Range/Units 08:38 08:38 RBC 6.15 H (4.30-5.90) m/uL Hgb 18.6 H (13.0-17.5) gm/dL Sodium 133 L (137-145) mmol/L Chloride 92 L (98-107) mmol/L BUN 25 H (9-20) mg/dL Creatinine 1.79 H (0.66-1.25) mg/dL Calcium 10.3 H (8.4-10.2) mg/dL
[2022-12-05] MEDS: carvediloL 12.5 MG TAB PO SCH (06:19)
[2022-12-05 08:26] VITALS: TEMP 97.4
--- NOTE | 2022-12-05 08:42 | P.DS ---
Providers Date of admission: 12/01/22 12:09 Attending physician: Kalpesh Lester Consults: 12/01/22 12:09 Consult Physician Routine Consulting Provider: Markie Contreras Consult Reason/Comments: Pulmonary edema, hypertensive emergency Do you want consulting provider notified?: Yes Primary care physician: Kalpesh Lester Hospital Course: This is a 32-year-old male who is admitted with pulmonary edema and hypertensive crisis. Patient feeling well, blood pressure is well-controlled. Amlodipine and Coreg were added, patient is tolerating. He has been up and about moving in the room with no issues. Patient may be discharged if cleared by cardiology. Patient seen and evaluated by nurse practitioner, physician in agreement with plan Patient Condition at Discharge: Fair Plan - Discharge Summary Discharge Rx Participant: Yes New Discharge Prescriptions: New amLODIPine [Norvasc] 10 mg PO DAILY 30 Days #30 tablet carvediloL [Coreg] 25 mg PO BID 30 Days #60 tablet Discharge Medication List amLODIPine [Norvasc] 10 mg PO DAILY 30 Days #30 tablet 12/05/22 [Rx] carvediloL [Coreg] 25 mg PO BID 30 Days #60 tablet 12/05/22 [Rx] Follow up Appointment(s)/Referral(s): Markie Contreras MD [STAFF PHYSICIAN] - 1 Week Kalpesh Lester MD [Primary Care Provider] - 1 Week Discharge Disposition: HOME SELF-CARE
[2022-12-05] MEDS: amLODIPine 10 MG TAB PO SCH (09:48)
[2022-12-05] MEDS: HEPARIN SODIUM,PORCINE/PF 5,000 UNIT/0.5 ML SYRINGE SQ SCH (09:48)
[2022-12-05 11:50] VITALS: BP 135/91; PULSE 69; RESP 16
[2022-12-05 11:50] LABS: Calcium 10.2 mg/dL (8.4-10.2); Potassium 3.9 mmol/L (3.5-5.1)
[2022-12-05 13:03] LABS: Parvovirus B-19 IgG Antibodies 2.56 INDEX (<=0.90)
[2022-12-05 13:04] LABS: Parvovirus B-19 IgM Antibodies 0.21 INDEX (<=0.90)
--- NOTE | 2022-12-05 13:16 | P.PN ---
Subjective Progress Note Date: 12/05/22 History of present illness: The patient is a 32-year-old gentleman with a past medical history significant for hypertension who stopped taking his blood pressure medication with lisinopril about 2 years ago presented to the hospital complaining of shortness of breath. He has not been feeding well for the last week or so. He was experiencing symptoms of shortness of breath mainly with exertion and also he has been experiencing orthopnea and PND. He presented initially into an urgent care where he was checked and was found to have elevated blood pressure which seems to be consistent was hypertension crisis/hypertension emergency with a systolic pressure above 180 mmHg. For that reason he was referred to go to the emergency department. Here his pressure continues to be elevated. He was given hydralazine with improvement in the blood pressure. He has no symptoms of chest pain or chest discomfort. No dizziness or lightheadedness and no feeling of heart racing or fluttering or presyncope or syncope. He underwent a workup including a chest x-ray showed no acute abnormalities with possible left small pleural effusion and also he underwent an EKG which showed initially sinus rhythm was no ST or T-wave abnormalities but possible LVH but subsequently after his pressure dropped down with hydralazine the repeated EKG showed what it seems to be T-wave inversion in the anterolateral leads definitely concerning for ischemia and could be also related to left ventricular hypertrophy. The first set of troponin came in to be abnormal. The NT proBNP came in around 8000. His creatinine also is a slightly abnormal with a GFR of 55. No history of coronary artery disease or congestive heart failure or cardiac arrhythmia but he does have history of hypertension and he has been noncompliant with medications. Currently he is feeling better into of shortness of breath and continues to have any chest pain or chest discomfort. 12/02/2022 The patient was seen and evaluated this morning. He was feeling overall better. The shortness of breath has improved. No symptoms of chest pain or chest discomfort. The pressure continues to be elevated but definitely improved compared to before. Still slightly tachycardic. We'll increase the dose of carvedilol to 6.25 mg by mouth twice a day. Waiting for the echo to be performed. Kidney function has improved. I'm going to proceed with that heart catheterization to rule out severe underlying coronary artery disease 12/03 Yesterday, patient underwent cardiac catheterization by Dr. Contreras which revealed normal coronary angiogram and elevated left-sided filling pressure. Patient gives history that he had a cough with congestion and nausea approximate month ago and after the last week he had shortness of breath. Heart rate in the 90s, blood pressure is been elevated 149/107, pulse ox 97% on room air. Repeat blood work reveals hemoglobin 17.7. Sodium 132, potassium 3.9, BUN 16 and creatinine 1.42. Echocardiogram reveals EF of 15-20%. Mild to moderate mitral regurgitation. 12/04 Blood pressure is improved from yesterday with medication changes made. We will increase Coreg. Plan will be eventually for ABDULLAHI inhibitor or ARB but on hold due to acute kidney injury. Lasix will be discontinued due to worsening renal function. BUN 25 and creatinine 1.79. Renal Doppler revealed no renal artery stenosis. Plan to monitor another day. 12/05 Repeat blood work reveals no worsening of renal function with BUN of 34 creatinine 1.73.blood pressure 135/91, 129/85, heart rate in the 60s sinus rhythm. Physical examination: Gen: This is a 32-year-old male. He is resting in bed and appears to be comfortable. VS: reviewed HEENT: Head is atraumatic, normocephalic. Pupils equal, round. Sclerae is anicteric. NECK: Supple. No JVD. LUNGS: Clear to auscultation. No wheezes or rhonchi. No intercostal retractions. HEART: Regular rate and rhythm. No murmur. ABDOMEN: Soft. Bowel sounds are present. No masses. No tenderness. EXTREMITIES: No pedal edema. No calf tenderness. NEUROLOGICAL: Patient is awake, alert and oriented x3. Assessment Hypertension crisis with hypertension emergency, ruled out renal artery s tenosis, rule out other etiology Shortness of breath related to severe cardiomyopathy, possibly viral induced Acute renal failure Noncompliance Plan Continue Coreg at increased dose of 25 mg twice daily and continue amlodipine 10 mg daily Discontinue Lasix Obtain labs for aldosterone, metanephrines, renin direct, coxsackie Smoking cessation Patient is cleared from cardiology for discharge home Plan is to initiate Abdullahi inhibitor or ARB as an outpatient once renal function is improved most likely in the next 2 weeks. Upon discharge, patient will have follow-up with Dr. Contreras. Nurse practitioner note has been reviewed, I agree with documented findings and plan of care. Patient was seen and examined. Objective - Vital Signs Vital signs: Vital Signs Temp 97.4 F L 12/05/22 08:00 Pulse 68 12/05/22 08:00 Resp 17 12/05/22 08:00 BP 129/85 12/05/22 08:00 Pulse Ox 96 12/05/22 08:00 FiO2 Intake & Output 12/04/22 12/05/22 12/05/22 18:59 06:59 18:59 Intake Total 180 Output Total 625 Balance 180 -625 Intake: Oral 180 Output: Urine 625 Other: Voiding Method Urinal Urinal Urinal # Voids 0 - Labs CBC & Chem 7: 12/04/22 08:38 12/05/22 10:53
== END 2022-12-05 13:31 | disposition home or self-care (01) | DRG 286 ==
LOC: EC 09:22 → 3SCARD 12:09
PROVIDERS: ADMIT Family Medicine; ATTEND Family Medicine
PROC: B2111ZZ Fluoroscopy of Multiple Coronary Arteries using Low Osmolar Contrast (ICD-10-PCS; 2022-12-02)
PROC: 4A023N7 Measurement of Cardiac Sampling and Pressure, Left Heart, Percutaneous Approach (ICD-10-PCS; principal; 2022-12-02 10:50)
DX: I16.1 Hypertensive emergency (principal); I50.23 Acute on chronic systolic (congestive) heart failure; N17.9 Acute kidney failure, unspecified; I5A Non-ischemic myocardial injury (non-traumatic); T46.4X6A Underdosing of angiotensin-converting-enzyme inhibitors, initial encounter; B33.24 Viral cardiomyopathy; I13.0 Hypertensive heart and chronic kidney disease with heart failure and stage 1 through stage 4 chronic kidney disease, or unspecified chronic kidney disease; F17.210 Nicotine dependence, cigarettes, uncomplicated; I34.0 Nonrheumatic mitral (valve) insufficiency; N18.30 Chronic kidney disease, stage 3 unspecified; Z91.14 Patient's other noncompliance with medication regimen; Z91.199 Patient's noncompliance with other medical treatment and regimen due to unspecified reason; Z28.310 Unvaccinated for COVID-19; Z28.21 Immunization not carried out because of patient refusal; Z20.822 Contact with and (suspected) exposure to COVID-19; Z71.6 Tobacco abuse counseling
CPT/HCPCS: 36415; 71046; 80048; 80053; 80061; 82088; 82533; 83605; 83835; 83880; 84244; 84484; 85025; 85379; 85610; 85730; 86658; 86747; 93005; 93306; 93458; 93975; 96361; 96365; 96366; 96375; 96376; 99291

== ENCOUNTER → 2023-05-20 | Outpatient (CLI) | payer BC ==
--- NOTE | 2023-05-20 20:42 | XR ---
EXAMINATION TYPE: XR chest 2V DATE OF EXAM: 05/20/2023 COMPARISON: 12/01/2022 HISTORY: 32-year-old male R07.9, right-sided rib pain after injury. TECHNIQUE: Frontal and lateral views FINDINGS: Heart upper limits of normal in size, likely technical related to AP technique. No consolidation, pne umothorax, or pleural effusion. There appears to be chronic right midclavicular shaft healed fracture deformity. No obvious displaced right rib fracture seen. IMPRESSION: 1. Chronic healed right midclavicular shaft fracture deformity. 2. No obvious displaced right rib fracture seen. If persistent concern, consider dedicated rib series . 3. No acute cardiopulmonary process.
== END | disposition home or self-care (01) ==
LOC: RADXRMAIN 16:59
PROVIDERS: ATTEND Family Medicine
DX: R07.9 Chest pain, unspecified (principal)
CPT/HCPCS: 71046